=== PATIENT | male | born 1945 | race Two or more races ===

== ENCOUNTER 2019-12-07 22:18 | Emergency (ER) | payer OTHER ==
[~2019-12-07] VITALS: Ht 170.2 cm; Wt 90.7 kg
[2019-12-07] MEDS ORDERED: CALCIUM CHLOR(10%) 100MG/ML 10ML SYRINGE IV ONE (22:24)
[2019-12-07] MEDS ORDERED: SODIUM BICARBONATE 8.4% INJ 50ML SYRINGE IV ONE (22:24)
[2019-12-07] MEDS ORDERED: AMIODARONE HCL 200 MG TAB PO ONE (22:24)
[2019-12-07] MEDS ORDERED: D5W 5% 100 ML MINI BAG IV ONE (22:24)
[2019-12-07] MEDS ORDERED: EPINEPHrine HCL 1 MG/10 ML SYRG IV ONE (22:24)
[2019-12-07 22:40] LABS: Hematocrit 25.5 % (41.0-53.0); Mean Corpuscular Hemoglobin 32.2 pg (28.0-32.0); Mean Corpuscular Hgb Conc. 31.3 g/dL (32.0-36.0); Mean Corpuscular Volume 102.9 fL (80.0-100.0); Platelet Count (auto) 163 10^3/uL (140-450); Red Blood Cells 2.48 10^6/uL (4.5-5.90); Red Cell Distribution Width 17.9 % (11.8-14.3)
[2019-12-07] MEDS: NOREPINEPHRINE 8 MG/250ML KIT 250 ML IV SCH ×2 (22:52→23:25)
[2019-12-07] MEDS ORDERED: NOREPINEPHRINE 8 MG/250ML KIT 250 ML IV ONE (22:53)
[2019-12-07] MEDS ORDERED: SODIUM BICARBONATE 8.4% INJ 50ML SYRINGE ONE (22:57)
[2019-12-07 22:58] LABS: White Blood Cell 49.1 10^3/uL (4.4-10.8)
[2019-12-07 22:59] LABS: Basophils % (manual) 0 (0.0-2.0); Blast Cells 0; Eosinophils % (manual) 0 (0-7); Metamyelocytes % 0; Myelocytes % 0; Promyelocytes % 0; Reactive Lymphocytes 0
[2019-12-07] MEDS ORDERED: SODIUM BICARBONATE 8.4 % INJ 50ML VIAL IV ONE (23:00)
[2019-12-07 23:01] LABS: Albumin 1.3 g/dL (3.4-5.0); Calcium 7.1 mg/dL (8.5-10.1); Potassium 4.3 mmol/L (3.5-5.1)
[2019-12-07 23:03] LABS: Bilirubin, Total 2.4 mg/dL (0.2-1.0); Total Protein 5.6 g/dL (6.4-8.2)
[2019-12-07 23:05] LABS: Magnesium 2.4 mg/dL (1.6-2.6)
[2019-12-07] MEDS ORDERED: VANCOMYCIN 1GM/250ML 250 ML IV ONE (23:15)
[2019-12-07] MEDS ORDERED: cefTRIAXone 1GM/50ML D5W 50 ML IV ONE (23:15)
[2019-12-07] MEDS ORDERED: HETASTARCH 500 ML IV ONE (23:15)
[2019-12-07 23:19] LABS: Band Neutrophils % (manual) 2; Lymphocytes % (manual) 20 (10.0-50.0); Monocytes % (manual) 5 (0-12)
[2019-12-07] MEDS ORDERED: MIDAZOLAM DRIP 50 mg/50mL 50 ML IV SCH (23:19)
[2019-12-07] MEDS ORDERED: MIDAZOLAM DRIP 50 mg/50mL 50 ML IV ONE (23:25)
[2019-12-07] MEDS ORDERED: PHENYLEPHRINE IV 250 ML IV ONE ×2 (23:35→23:45)
[2019-12-07] MEDS: PHENYLEPHRINE IV 250 ML IV SCH (23:40)
[2019-12-07 23:49] LABS: Lactic Acid w/Reflex 14.1 mmol/L (0.4-2.0)
[2019-12-07 23:55] VITALS: BP 39/22
[2019-12-08 00:20] LABS: Urine Bacteria MANY /hpf (None Seen); Urine Blood 2+ /uL (Negative); Urine Mucus FEW (None Seen); Urine Specific Gravity 1.014 (1.001-1.035); Urine WBC 4795 /hpf (0 - 3); Urine WBC Clumps PRESENT /hpf (None Seen)
[2019-12-08] MEDS: PHENYLEPHRINE IV 250 ML IV SCH (07:58)
== END 2019-12-08 00:08 | disposition expired ==
LOC: EDBD 22:18 → ER 22:23
DX: I46.9 Cardiac arrest, cause unspecified (principal); E78.5 Hyperlipidemia, unspecified; I48.91 Unspecified atrial fibrillation; I95.9 Hypotension, unspecified; Z85.46 Personal history of malignant neoplasm of prostate
CPT/HCPCS: 31500; 36415; 36600; 51702; 71045; 80053; 81001; 82805; 83605; 83735; 84484; 85007; 85027; 87070; 87077; 87086; 87088; 87186; 87205; 87804; 92950; 93005; 96365; 96368; 99291; J0171; J2250; J2370; J7030; J7060; 94002